=== PATIENT | female | born 1950 | race Caucasian/White ===

== ENCOUNTER 2018-09-14 05:27 | Day surgery (SDC) | payer OTHER, MEDICARE ==
[~2018-09-14] VITALS: Ht 170.2 cm; Wt 104.3 kg
--- NOTE | ~2018-09-14 | O ---
[facility] [place] [address] OPERATIVE REPORT Name: JOEL GARCIA Room #: 150-5 [facility]..#: [id number] Admission: 09/14/18 ������������������ Attend Phys: Moisés Rocha MD Discharge: ������������������ Date of : 46 Report #: [id number] THIS REPORT FOR: //name// CC: Moisés Greenissa Balaji DATE OF SERVICE: 09/14/2018 PREOPERATIVE DIAGNOSES: Deviated septum, turbinate hypertrophy and maxillary and ethmoid sinusitis. POSTOPERATIVE DIAGNOSES: Deviated septum, turbinate hypertrophy and maxillary and ethmoid sinusitis. PROCEDURES: Left endoscopic ethmoidectomy, partial; left nasal antral window balloon sinuplasty, right nasal antral window balloon sinuplasty with tissue removal; bilateral submucous inferior turbinate resection and septoplasty. SURGEON: Moisés Rocha M.D. ANESTHESIA: General oral endotracheal. INDICATIONS: See H and P. FINDINGS: Large left-sided septal spur impacting against the inferior turbinate and lateral nasal wall, involving the quadrangular cartilage and anterior vomer. Left ethmoid mucoperiosteal thickening was noted. TECHNIQUE: After obtaining consent, she was brought to the operating suite and appropriate time-out was performed. General oral endotracheal anesthesia was obtained. The bed was turned 90 degrees, placed in a slight head-up position. Cottonoids with Afrin were placed in each side of the nares for vasoconstriction. A 6 mL of 1% Xylocaine and 1:100,000 epinephrine was injected in each side of the septum. An additional mL was injected on each side of the uncinate process in the anterior middle turbinates and inferior turbinates for a total used 9 mL local anesthetic. The Reissued system was registered, fiducials were appropriately picked and accuracy was confirmed within a couple of millimeters. This was used during the endoscopic portion of the procedure. Face was prepped and draped in the usual sterile fashion. Attention was first turned to the sinus portion of the procedure, where using a 0-degree scope, the right nasal passage was intubated. The middle turbinate was medialized with a [place]. The uncinate process was brought forward with a double ball in the inferior two-thirds. The uncinate process was taken down with the side biter [address] [address] OPERATIVE REPORT Name: JOEL GARCIA Room #: 150-5 [facility]#: [id number] Admission: 09/14/18 ������������������ Attend Phys: Moisés Rocha MD Discharge: ������������������ Date of : 46 Report #: [id number] and a microdebrider. Using a double ball, I was able to explore the natural ostia using the maxillary sinus balloon. This was introduced into the maxillary ostia. The balloon was advanced into the ostia itself and dilated x 3. I then removed the balloon atraumatically. Attention was then turned to the left side. A similar approach was made endoscopically with the balloon sinuplasty done first after removing the lower two-thirds of the uncinate process in the similar fashion. Keeping the middle turbinate medialized, I continued to perform an ethmoidectomy on the anterior portion using a microdebrider, first starting inferiorly and violating the ethmoid bulla, proceeding back inferiorly to the ground lamella, opening the ground lamella and noting normal air cells in the anterior portion of the posterior ethmoids, proceeding superiorly towards the roof, where again I came across some very thick mucosa and some mucus within the ethmoid air cells, in the mid portion of the anterior ethmoid air cells. Devitalized mucosa and bone was removed completely. A cottonoid was placed in this area. I then turned my attention to the septum and right anterior hemitransfixion incision was made with elevation of the mucosal flap off the left side, past the cartilaginous and bony spur. Upon elevating the left flap, there was a tear on the inferior portion of the left flap. However, there was no adjacent tear on the right flap when it was created. A large piece of quadrangular cartilage was removed to expose the right side. The bony cartilaginous junction was disarticulated, mucosal flaps elevated off the spur on the right side. Using Tuan-Latosha scissors, an incision was made above and below the spur. The spur was removed in a piecemeal fashion. Previously harvested cartilage was trimmed, morcellized and placed back between the septal folds. The septum, at this point, was much straighter with greatly improved left nasal airway. Hemitransfixion incision was closed with simple 4-0 chromic sutures. Splints were placed in each side and secured with a single 3-0 Prolene suture. Hemostatic pack was removed from the left ethmoid defect. There was no active bleeding noted. I filled that area with a Xerogel pack, allowed to self-inflate. Each inferior turbinate was then medialized with a [place] elevator. A submucosal tunnel was then created with the caudal elevator and submucous resection was performed with the 2.0 microdebrider blade on the medial and medial inferior surface of each inferior turbinate. I then outfractured each inferior turbinate and placed a single piece of Merogel against the septum and inferior turbinate to keep him lateralized. At this point, we completed the surgical procedures. The nasopharynx was suctioned free of secretion. She was turned back over to Anesthesia, where she was lightened, extubated and taken to recovery room in stable condition. [facility] [address] [place] [address] OPERATIVE REPORT Name: JOEL GARCIA Room #: 150-5 [facility]..#: [id number] Admission: 09/14/18 ������������������ Attend Phys: Moisés Rocha MD Discharge: ������������������ Date of : 46 Report #: [id number] ESTIMATED BLOOD LOSS: 100 mL. ��������������������������������������������� ���������������������������������������� By: ��������������������������������������������� 0907 1204 Moisés Rocha MD /nt
[~2018-09-14 05:27] MED LIST: ASPIR 8181 MG PO; CRANBERRY450 M1 PO; FOLIC ACID1 MG PO; HAIR, SKIN & N1 EAC2 PO; HYDROCHLOROTHIA25 M2 PO; MELATONIN5 M1 PO; MILK THISTLE500 MG PO; POTASSIUM CITR10 ME1 PO; RESTORIL15 MG PO; SIMVASTATIN10 MG PO; SYNTHROID100 MC1 PO
[2018-09-14 06:55] LABS: CALCIUM 9.5 mg/dL (8.5-10.1); CREATININE 0.9 mg/dL (0.6-1.0); POTASSIUM 3.5 mmol/L (3.5-5.1)
--- NOTE | 2018-09-14 07:15 | H ---
[facility] [place] [address] HISTORY AND PHYSICAL Name: JOEL GARCIA Room #: 150-5 [facility]..#: [id number] Admission: 09/14/18 ������������������ Attend Phys: Moisés Rocha MD Discharge: ������������������ Date of : 46 Report #: [id number] THIS REPORT FOR: //name// CC: Moisés Carpio DATE OF SERVICE: 09/14/2018 DATE OF SURGERY: 09/14/2018. CHIEF COMPLAINT: Deviated septum, sinusitis. HISTORY OF PRESENT ILLNESS: The patient is 67-year-old female with longstanding history of sinus and nasal complaints. Last year in 2017, she had had a several-week history of nasal discharge and facial pain. She had had a previous MRI scan of 08/2017, which had showed substantial sinusitis. At that time, we have repeated a CT scan of her sinuses in 10/2017 following completion of therapy that showed the deviation of the nasal septum, right-sided middle turbinate geovanni bullosa and continued mucoperiosteal thickening in the sinus cavities. In discussion with her at that time, we gave the option of medical treatment versus endoscopic sinus surgery along with septoplasty. At that point in time, she had decided she may wish to wait not pursue surgery. She returned back in 03/2018 and at that time from a sinus standpoint seems to be doing fairly stable, only to have recurrence of her symptoms in early 06/2018 where she was placed on more therapy. Despite doing so, she continued to have symptoms of sinusitis and a repeat CT scan done in 07/2018 showed a very similar appearance to what was seen in 2018. Based on that, a discussion occurred in 08/2018 as to the option of consideration for sinus surgery and septoplasty. I discussed the risks and benefits involved and she does wish to proceed forward at this time, understanding the procedure and the alternatives. ALLERGIES TO MEDICATION: CYCLOBENZAPRINE, DARVON, LORTAB, NORCO, TRAMADOL, AND VICODIN. She is, however, able to tolerate oxycodone and acetaminophen 5/325 mg tablets without any difficulty. MEDICATIONS ON ADMISSION: Hydrochlorothiazide 25 mg once a day, levothyroxine 100 mcg a day, meloxicam 15 mg a day, simvastatin 10 mg once a day, temazepam 15 mg once a day. PAST MEDICAL AND SURGICAL HISTORY: Previous back surgery, hysterectomy, knee surgery, shoulder procedure, adenotonsillectomy. PHYSICAL EXAMINATION: GENERAL: Female appears her stated age. VITAL SIGNS: Height of 5 feet 6 inches, weight 220 pounds, blood pressure 126/75. [address] [address] HISTORY AND PHYSICAL Name: JOEL GARCIA Room #: 150-5 [facility].#: [id number] Admission: 09/14/18 ������������������ Attend Phys: Moisés Rocha MD Discharge: ������������������ Date of : 46 Report #: [id number] HEENT: Reveals a deviated nasal septum along with enlarged right middle turbinate. Oral cavity and oropharynx showed surgical absence of tonsils. NECK: Normal to palpation. CHEST: Clear. CARDIOVASCULAR: Regular rate and rhythm. ASSESSMENT: History of chronic rhinosinusitis and deviated septum. PLAN: Will be above-mentioned surgery. ��������������������������������������������� <ELECTRONICALLY SIGNED> ���������������������������������������� By: Moisés Rocha MD ��������������������������������������������� 09/14/18 0715 1150 1211 Moisés Rocha MD /nt
--- NOTE | 2018-09-14 08:35 | EKG ---
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1950 Requested By: Moisés Rocha Order Number: [id number] MD: Robbie Mcrae Measurements Intervals [place] Rate: 71 P: 10 MO: 201 QRS: -4 QRSD: 92 T: 32 QT: 442 QTc: 481 Interpretive Statements Sinus rhythm Sinus arrhythmia No previous ECG available for comparison Electronically Signed On 09-14-2018 8:35:37 CDT by Robbie Mcrae [email or web address] ��������������������������������������������� <ELECTRONICALLY SIGNED> ���������������������������������������� By: Robbie Mcrae MD, [facility] ��������������������������������������������� 09/14/18 0835 0642 0642 Robbie Mcrae MD, FACC /EPI
== END 2018-09-14 11:10 | disposition home or self-care (01) ==
LOC: TBA 05:27 → OR 05:27
PROVIDERS: Otolaryngology
DX: J34.2 Deviated nasal septum (principal); J34.3 Hypertrophy of nasal turbinates; J32.0 Chronic maxillary sinusitis; J32.2 Chronic ethmoidal sinusitis; I10 Essential (primary) hypertension; E03.9 Hypothyroidism, unspecified; Z90.710 Acquired absence of both cervix and uterus; Z98.890 Other specified postprocedural states; Z79.899 Other long term (current) drug therapy; Z88.8 Allergy status to other drugs, medicaments and biological substances; Z96.653 Presence of artificial knee joint, bilateral; Z85.3 Personal history of malignant neoplasm of breast
CPT/HCPCS: 50010; 50101; 70005